=== PATIENT | male | born 2000 | race Caucasian/White ===

== ENCOUNTER 2021-05-22 23:05 | Emergency (ER) | payer OTHER | END 2021-05-23 01:44 | disposition home or self-care (01) | LOC: FER 23:05 | DX: S01.511A Laceration without foreign body of lip, initial encounter (principal); F17.200 Nicotine dependence, unspecified, uncomplicated; Y04.0XXA Assault by unarmed brawl or fight, initial encounter; Y92.009 Unspecified place in unspecified non-institutional (private) residence as the place of occurrence of the external cause | CPT/HCPCS: 90715 ==

== ENCOUNTER 2021-06-29 00:07 | Emergency (ER) | payer OTHER ==
[2021-06-29] MEDS ORDERED: MEDROL 4MG DOSEP4 MG PO (01:05)
== END 2021-06-29 01:25 | disposition home or self-care (01) ==
LOC: FER 00:07
DX: M54.12 Radiculopathy, cervical region (principal); F17.290 Nicotine dependence, other tobacco product, uncomplicated
CPT/HCPCS: 73030